=== PATIENT | female | born 1985 | race African-American/Black ===

== ENCOUNTER 2020-09-27 10:14 | Day surgery (SDC) | payer SELFPAY ==
[2020-09-21 11:11] VITALS: BMI 35.5
[2020-09-27] MEDS ORDERED: DEXAMETHASONE SOD PHOSPHATE 4 MG/1 ML VIAL ONE (12:02)
[2020-09-27] MEDS ORDERED: ROCURONIUM BROMIDE 50 MG/5 ML SYRINGE ONE (12:02)
[2020-09-27] MEDS ORDERED: KETOROLAC TROMETHAMINE 30 MG/1 ML VIAL ONE (12:02)
[2020-09-27] MEDS ORDERED: ONDANSETRON 4 MG/2 ML VIAL ONE (12:02)
[2020-09-27] MEDS ORDERED: MIDAZOLAM HCL 2 MG/2 ML SINGLE DOSE VIAL ONE (12:02)
[2020-09-27] MEDS ORDERED: ceFAZolin SODIUM 1 GM VIAL ONE ×2 (12:02→21:16)
[2020-09-27] MEDS ORDERED: PROPOFOL 20 ML ONE ×7 (12:02→16:42)
[2020-09-27] MEDS ORDERED: LIDOCAINE HCL 2% JELLY (5 ML/TUBE) ONE (12:02)
[2020-09-27] MEDS ORDERED: fentaNYL CITRATE 250 MCG/5 ML VIAL ONE (12:02)
[2020-09-27] MEDS ORDERED: LIDOCAINE HCL/PF 2% SDV 5ML VIAL ONE (12:02)
[2020-09-27] MEDS ORDERED: SEVOFLURANE 250 ML BTL ONE (12:04)
[2020-09-27] MEDS ORDERED: HEPARIN NA (PORCINE) 5,000 UNITS/ML 1ML VIAL ONE (12:15)
[2020-09-27] MEDS ORDERED: HYDROmorphone HCL/PF 1 MG/ML VIAL ONE ×2 (15:10)
[2020-09-27] MEDS ORDERED: NEOSTIGMINE METHYLSULFATE 0.5 MG/1 ML - 10 ML MDV ONE (16:18)
[2020-09-27] MEDS ORDERED: GLYCOPYRROLATE 0.2 MG/1 ML VIAL ONE (16:18)
[2020-09-27] MEDS ORDERED: oxyCODONE HCL 5 MG TABLET PO PRN ×3 (18:01→18:02)
[2020-09-27] MEDS ORDERED: ONDANSETRON 4 MG/2 ML VIAL IVPB PRN (18:01)
[2020-09-27] MEDS ORDERED: morphine SULFATE 4 MG/ML VIAL IVPUSH PRN (18:01)
[2020-09-27] MEDS ORDERED: PROMETHAZINE HCL 25 MG/1 ML VIAL IVPUSH PRN (18:02)
[2020-09-27] MEDS ORDERED: ONDANSETRON 4 MG/2 ML VIAL IVPUSH PRN (18:02)
[2020-09-27] MEDS ORDERED: LACTATED RINGERS SOLUTION 1,000 ML IV SCH (18:15)
[2020-09-27] MEDS ORDERED: DEXTROSE 5%-WATER - 50 ML IVPB ONE (21:16)
[2020-09-27] MEDS: HEPARIN NA (PORCINE) 5,000 UNITS/ML 1ML VIAL SQ SCH (21:31)
[2020-09-27] MEDS: CEFAZOLIN 1 GM in DEXTROSE 5%-WATER - 50 ML IVPB SCH (21:31)
[2020-09-28] MEDS ORDERED: DEXTROSE 5%-WATER - 50 ML IVPB ONE (06:08)
[2020-09-28] MEDS ORDERED: ceFAZolin SODIUM 1 GM VIAL ONE (06:08)
[2020-09-28] MEDS: CEFAZOLIN 1 GM in DEXTROSE 5%-WATER - 50 ML IVPB SCH (06:10)
[2020-09-28 06:27] VITALS: BP 107/56; PULSE 87; TEMP 98.8
[2020-09-28] MEDS: HEPARIN NA (PORCINE) 5,000 UNITS/ML 1ML VIAL SQ SCH (09:24)
== END 2020-09-28 12:00 | disposition home or self-care (01) ==
LOC: FASU 10:14 → FM/S 19:06 → FASU 09-28 12:00
PROVIDERS: ATTEND Plastic Surgery
PROC: 0H0V0ZZ Alteration of Bilateral Breast, Open Approach (ICD-10-PCS; principal; 2020-09-27 12:55)
DX: N62 Hypertrophy of breast (principal)
CPT/HCPCS: 84703; 88305-TC; 94760; J1644